=== PATIENT | female | born 1995 | race African-American/Black ===

== ENCOUNTER 2017-05-08 23:54 | Emergency (ER) | payer OTHER ==
[~2017-05-08] VITALS: Ht 154.9 cm; Wt 56.7 kg
[2017-05-09] MEDS ORDERED: MOTRIN600 MG PO (02:05)
[2017-05-09 02:19] VITALS: BP 121/87
== END 2017-05-09 02:22 | disposition home or self-care (01) ==
LOC: EME 23:54
PROC: 2W39X1Z Immobilization of Left Upper Extremity using Splint (ICD-10-PCS; principal; 2017-05-09)
DX: M65.88 Other synovitis and tenosynovitis, other site (principal); X50.0XXA Overexertion from strenuous movement or load, initial encounter; Y99.0 Civilian activity done for income or pay; F17.200 Nicotine dependence, unspecified, uncomplicated
CPT/HCPCS: 73090